=== PATIENT | female | born 1945 | race Caucasian/White ===

== ENCOUNTER 2017-07-16 07:36 | Day surgery (SDC) | payer OTHER ==
[~2017-07-16] VITALS: Ht 160 cm; Wt 72.6 kg
[~2017-07-16 07:36] MED LIST: CRESTOR40 MG PO; FOSAMAX70 MG PO; PANTOPRAZOLE SO40 MG PO; VITAMIN D32000 UNI1 PO
[2017-07-16 08:31] VITALS: BP 145/67
[2017-07-16 12:54] VITALS: BP 121/70
[2017-07-16 13:44] LABS: CREATININE 0.5 MG/DL (0.6-1.3); GFR ESTIMATE (CALCULATED) > 59 mL/min/
[2017-07-16 15:59] VITALS: BP 119/59
[2017-07-16 20:20] VITALS: BP 125/74
[2017-07-16 23:37] VITALS: BP 117/66
[2017-07-17 03:47] VITALS: BP 119/69
[2017-07-17 06:12] LABS: HEMATOCRIT 36.3 % (36.0-46.0); HEMOGLOBIN 12.6 G/DL (11.9-15.5); MCH 33.4 PG (29.0-34.0); MCHC 34.7 G/DL (30.0-36.0); MCV 96.3 FL (83-99); PLATELET COUNT 218 K/uL (156-360); RBC DIS.WIDTH-CV 12.8 % (11.8-14.6); RBC DIS.WIDTH-SD 45.9 % (39-53); RED BLOOD COUNT 3.77 M/uL (3.80-5.20); WHITE BLOOD COUNT 9.3 K/uL (4.1-10.2)
[2017-07-17 06:36] LABS: CHLORIDE 98 MEQ/L (99-109); CREATININE 0.5 MG/DL (0.6-1.3); GFR ESTIMATE (CALCULATED) > 59 mL/min/; GLUCOSE 88 mg/dL (70-99); POTASSIUM 3.9 MEQ/L (3.7-5.4); SODIUM 129 MEQ/L (136-147); UREA NITROGEN (BUN) 3 mg/dL (9-23)
[2017-07-17 08:34] VITALS: BP 130/60
[2017-07-17] MEDS ORDERED: TRAMADOL HCL50 MG PO (08:50)
[2017-07-17 12:45] VITALS: BP 154/70
== END 2017-07-17 14:15 | disposition home or self-care (01) ==
LOC: SDC 07:36 → 2SOUTH 11:39 → ENRESERV 11:40 → 2EAST 12:38 → SDC 16:08 → 2EAST 07-17 14:15
PROVIDERS: Obstetrics & Gynecology Gynecologic Oncology
PROC: 0UTMXZZ Resection of Vulva, External Approach (ICD-10-PCS; principal; 2017-07-16)
DX: D07.1 Carcinoma in situ of vulva (principal); Z85.41 Personal history of malignant neoplasm of cervix uteri; Z86.010 Personal history of colon polyps; M19.90 Unspecified osteoarthritis, unspecified site; Z86.19 Personal history of other infectious and parasitic diseases; E78.5 Hyperlipidemia, unspecified; R03.0 Elevated blood-pressure reading, without diagnosis of hypertension; M81.0 Age-related osteoporosis without current pathological fracture; Z90.710 Acquired absence of both cervix and uterus; N90.4 Leukoplakia of vulva; K29.50 Unspecified chronic gastritis without bleeding; Z87.11 Personal history of peptic ulcer disease; F17.200 Nicotine dependence, unspecified, uncomplicated; Z80.3 Family history of malignant neoplasm of breast
CPT/HCPCS: 80048; 82565; 85027; 88307; G0378; J0131; J0690; J1100; J1170; J1650; J1885; J2405; J2765; Q0175; S0020